=== PATIENT | female | born 1975 | race Caucasian/White ===

== ENCOUNTER 2016-11-26 05:18 | Day surgery (SDC) | payer OTHER ==
[2016-11-25 09:07] VITALS: BMI 24.2
[2016-11-26] VITALS (17 sets, daily range): BP systolic 126–162; BP diastolic 75–95; PULSE 76–91; RESP 11–24; Ht 157.5 cm; Wt 58.7 kg
[~2016-11-26] VITALS: Ht 157.5 cm; Wt 58.7 kg
[2016-11-26] MEDS ORDERED: CEFAZOLIN 2 GM/50 ML (PMX) 50 ML IVPB SCH (06:00)
[2016-11-26] MEDS ORDERED: LACTATED RINGER'S 1,000 ML IV* SCH (06:00)
[2016-11-26] MEDS ORDERED: zyrtec PO (06:09)
[2016-11-26] MEDS ORDERED: MEPERIDINE 25 MG INJ IV PRN (07:00)
[2016-11-26] MEDS ORDERED: ONDANSETRON 4 MG INJ IV PRN (07:00)
[2016-11-26] MEDS ORDERED: KETOROLAC 30 MG INJ IV ONE (07:00)
[2016-11-26] MEDS ORDERED: DIPHENHYDRAMINE 50 MG INJ IV PRN (07:00)
[2016-11-26] MEDS ORDERED: HYDROmorphONE (0.2 MG/ML) 10ML SYG IV PRN ×2 (07:00)
[2016-11-26] MEDS ORDERED: EPHEDrine SULFATE 50 MG/5 ML SYG IV PRN (07:00)
[2016-11-26] MEDS ORDERED: PROPOFOL 20 ML ONE (08:02)
[2016-11-26] MEDS ORDERED: MIDAZOLAM 1 MG/ML 2 ML INJ ONE (08:02)
[2016-11-26] MEDS ORDERED: DEXAMETHASONE 4 MG/ML 1 ML INJ ONE (08:02)
[2016-11-26] MEDS ORDERED: FENTAnyl 50 MCG/ML VIAL ONE (08:02)
[2016-11-26] MEDS ORDERED: ONDANSETRON 4 MG INJ ONE (08:02)
[2016-11-26] MEDS: HYDROmorphONE (0.2 MG/ML) 10ML SYG IV PRN ×3 (09:48→09:52)
--- NOTE | 2016-11-26 11:57 | OPR ---
DATE OF OPERATION: 11/26/2016 PREOPERATIVE DIAGNOSIS: Menometrorrhagia. POSTOPERATIVE DIAGNOSES: Menometrorrhagia. OPERATION PERFORMED: Hydrothermal endometrial ablation by [employer] method. SURGEON: Shawanda Bal MD ESTIMATED BLOOD LOSS: Minimal. COMPLICATIONS: None. FINDINGS: Normal uterine cavity. No evidence of submucosal myoma or polyps. CONSENT: Please see my preoperative H and P consent for the consent process. DESCRIPTION OF PROCEDURE: After informed consent was obtained, she was taken to the operating room and general anesthesia was induced. She was prepped and draped in the usual sterile fashion. Anter ior lip of the cervix was grasped using a single tooth tenaculum in the usual fashion. The cervix w as dilated to size 8 Hegar dilators and the hysteroscope was inserted past the internal os. The hys teroscope did not reveal any abnormal uterine findings and adequacy was obtained by placing a tenacu lum and Allis clamp. Seal check was done and confirmed that there is no fluid loss. Ablation was s tarted. The fluid was warmed up to 85 degrees and 10 minutes of ablation was performed. We had no fluid loss and the procedure was done continuously and cooling period of 90 seconds was done. Then the instruments were removed. At the end of the case, hysteroscopy revealed complete desiccation of the endometrial tissue. There was no bleeding from tenaculum site. The patient tolerated the proc edure well. Dictated By: SHAWANDA VERGARA/TIFFANY Conf#: [id number] DID#: [id number]
== END 2016-11-26 10:47 | disposition home or self-care (01) ==
LOC: SDS 05:18
PROVIDERS: ATTEND Specialist
DX: N92.1 Excessive and frequent menstruation with irregular cycle (principal); F17.210 Nicotine dependence, cigarettes, uncomplicated; I10 Essential (primary) hypertension
CPT/HCPCS: 58563; 84703; J1100; J1170; J1885; J2175; J2250; J2405; J3010; Z7512; Z7610